=== PATIENT | female | born 1985 | race Caucasian/White ===

== ENCOUNTER 2025-04-12 17:49 | Emergency (ER) | payer BC, SELFPAY ==
--- NOTE | 2025-04-12 17:47 | ECG_ITS ---
APPROVED REPORT Exam: Resting ECG HR:97 bpm ECG Measurements Heart Rate 97 AXES IA 108 P 81 QRSd 81 QRS 80 QT 340 T 59 QTc 395 Conclusion Sinus rhythm No acute ischemic change Electronically signed by : NATALIE MELENDEZ, 04/12/2025 23:06:33
[2025-04-12 17:49] VITALS: BP 157/100; PULSE 75; O2SAT 99
--- OUTSIDE RECORDS SUMMARY | 2025-04-12 17:53 | XMS_ITS | Data Portability ---
Author Organization [facility] [place], [facility] Address [address] [place] [id number] Assessment No assessment recorded. Plan of Treatment Reminders Order Date Submit Date Provider Last Modified By Organization Details Last Modified Time Details Appointments None record ed. Lab None record ed. Referral None record ed. Procedures None record ed. Surgeries None record ed. Imaging None record ed. Medication Orders None record ed. Patient TargetsNo targets recorded. Patient InstructionsNo instructions recorded. Reason for Referral None Reported. Procedures Surgical History Date Name Laterality Status Provider Name and Address Organization Details Recorded Time 10/15/19 18 Other completed Juliann Denton [facility] [place] 09/19/2022 08:51:15 10/15/19 11 Other completed Juliann Denton [facility] [place] 09/19/2022 08:51:15 10/15/18 89 Abdominal Surgery completed Juliann Denton [facility] [place] 09/19/2022 08:51:15 reconstruction of nose completed Juliann Denton [facility] [place] 09/19/2022 08:44:55 procedure on urinary bladder completed Juliann Denton [facility] [place] 09/19/2022 08:45:06 exploratory laparotomy completed Juliann Denton [facility] [place] 09/19/2022 08:45:50 Imaging Results None recorded. Procedure Notes None recorded. Medical Equipment None Reported. Allergies No known drug allergies Medications Name Sig Start Date Stop Date Status Note LastModified by Organization Details LastModified Time alprazolam 0.5 mg tablet TAKE 1 TABLET BY MOUTH NEEDED active Not Available Not Available No t Available venlafaxine 37.5 mg tablet TAKE 1 TABLET BY MOUTH TWICE A DAY active Not Available Not Available No t Available hydroxyzine HCl 25 mg tablet Take 1 tablet twice a day by oral route. active Not Available Not Available No t Available Vitals Date Recorded Body height Body mass index (BMI) Body weight Heart rate Oxygen saturation Oxygen saturation in Arterial blood by Pulse oximetry Body temperature Systolic blood pressure Diastolic blood pressure Provider Name and Address Organization Details Last Updated DateTime 2 154.94 cm 34.4 kg/m2 78237.0 9 g 91 /min 97 % 97 % 99.1 [degF] 128 mm[Hg] 85 mm[Hg] Juliann Denton [facility] [place] 2 08:50:47 Date Recorded Body height Body mass index (BMI) Body weight Heart rate Oxygen saturation Oxygen saturation in Arterial blood by Pulse oximetry Body temperature Systolic blood pressure Diastolic blood pressure Provider Name and Address Organization Details Last Updated DateTime 2 154.94 cm 34.4 kg/m2 06487.8 1 g 101 /min 99 % 99 % 97.3 [degF] 124 mm[Hg] 68 mm[Hg] [facility] [place] [facility] 11:18:33 Social History Question Answer Notes LastModified by Organizat ion Details LastModified Time Tobacco Smoking Status Former Smoker Juliann Denton [facility] [place] 09/19/2022 08:44:37 Do You Have An Advance Directive? No [email or web address] Information not available 09/19/2022 Are You Blind Or Do You Have Difficulty Seeing? No [email or web address] Information not available 09/19/2022 Are You Passively Exposed To Smoke? No [email or web address] Information not available 09/19/2022 How Much Tobacco Do You Smoke? No [email or web address] Information not available 09/19/2022 Sex: Unknown Functional Status Question Answer Note LastModified by Organizat ion Details LastModified Time Do you use any illicit or recreational drugs? No [email or web address] Information not available 09/19/2022 What is your level of alcohol consumption? Occasional Information not available 09/19/2022 What is your exercise level? Occasional [email or web address] Information not available 09/19/2022 Mental Status Question Answer Note LastModified by Organization D etails LastModified Time Do you feel stressed (tense, restless, nervous, or anxious, or unable to sleep at night)? [id number] Information not available 09/19/2022 Family History Nothing Reported. Medical History Condition Response None Y Gynecological History Statement/Question Response Menses Monthly Y Abnormal Pap Y Duration of Flow (days) 4-5 days Current Control Method None Flow Heavy Sexually Active? Y Obstetrics History GPAL:G 0 P 0 0 0 0 Past Encounters Encounter ID Performer Location Encounter Start Date Encounter Closed Date Diagnosis/Indication Diagnosis SNOMED-CT Code Diagnosis ICD10 Code Diagnosis Note [id number] MD YEIMI Mosquera [facility] [address] [place] [address] 8 09/19/2022 08:27:24 09/19/2022 09:10:18 Mass of left breast 8223850083 8409290 N63.20 inferior. Plan for excision. [id number] MD YEIMI Mosquera [facility] [address] [place] [address] 8 10/04/2022 10:34:27 10/04/2022 11:25:40 Pre-surgery evaluation [id number] Z01.818 Cyst of left breast 1073 831046 7844985 N60.02 observatio n. Health Concerns Section Related Observation LastModified by Organization Detai ls LastModified Time None Recorded Concern Status LastModified by Organization Details LastModified Time None Recorded Advance Directives Directive N: Payers Insurance Date Sequence Insurance Name Policy Number Policy Alcala Covered Member ID Alcala Member ID Guarantor Name 09/12/2022 SLIDING FEE SCHEDULE - DISCOUNT Dottie Bacon Notes Date Note Type Note Provider Name and Address Organization Details Recorded Time 09/19/2022 text/html Dottie is a 37-year-old woman who complains of a left breast knot. She has noticed the lump for approximately 1 year. Recently is become larger and more painful. She has no personal history of breast problems. She is adopted but recently found her mother and was told that she has no immediate family history of breast cancer. She has had mammograms ordered but they have been performed yet. Yunior Alvarado MD [address] [place] [address],[address], [place], [address], [facility] [place] 09/19/2022 09:10:46 10/04/2022 text/html Dottie is a 37-year-old woman who I have seen in the past for a left breast cyst. She was not able to have it excised at that time. Since then she says the cyst as resolved. Yunior Alvarado MD [address] [place] [address],[address], [place], [address], [place] - [facility] [place] 10/04/2022 16:00:38 OBGyn Episode No OBEpisode recorded.
--- OUTSIDE RECORDS SUMMARY | 2025-04-12 17:53 | XMS_ITS | Encounter Summary ---
Author Organization [place] [place] [address] Care Team Providers Care Architectural Wood Model Maker Name Role Phone Keri Gordon APRN Primary Care Provider [phone] Reason for Visit * Reason Onset Date Comments Medication Refill 07/24/2017 Encounter Details Date Type Department Care Team (Late st Contact Info) Description 07/24/2017 Refill SEP Patricia [address] 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 Author Maintain a healthy diet, exercise regularly and maintain an ideal body weight General No Madeleine Hernández CCMA documented as of this encounter Visit Diagnoses Not on filedocumented in this encounter Additional Health Concerns Assessment Noted Time PHQ-9 Depression Total Score: 18 017 8:00 AM EDT PHQ-2 Depression Total Score: 6 04/10/20 17 8:00 AM EDT documented as of this encounter Care Teams Architectural Wood Model Maker Relationship Specialty Start Date End Date Keri Gordon APRN [address] [place], [place] [address] PCP - General Nurse Practitioner-Family 05/01/1704/14 documented as of this encounter
--- OUTSIDE RECORDS SUMMARY | 2025-04-12 17:53 | XMS_ITS | Data Portability ---
Author Organization [facility] Address [address] [place] [address] Assessment No assessment recorded. Plan of Treatment Reminders Order Date Submit Date Provider Last Modified By Organization Details Last Modified Time Details Appointments None recorded. Lab test, urine 2019 020 [email or web address] [place] [employer], [address] [facility] , [place], [address], 0 22:19:42 HCG, intact + beta subunit, quant, serum or plasma 2019 020 [email or web address] [facility]( Lab), [address] [place] [address] Salina Baeza, [place], [address], 0 09:58:39 HCG, intact + beta subunit, quant, serum or plasma 2019 020 [email or web address] [facility]( Lab), [address] [place] [address] Salina Baeza, [place], [address], 0 15:41:10 Referral general surgeon referral - mammogram and US ordered; questionabl e of superficial sebaceous cyst would like a surgery consult 2021 022 [email or web address] [facility], [address] [place] [address] , [facility] [address], [place], [address], 3 09:35:40 community health worker referral - pt needs a mammogram and Us of left breast secondary to lump and has no insurance 2021 022 [email or web address] Not available 15:44:52 Procedures None recorded. Surgeries None recorded. Imaging US, breast, unilateral 2021 022 [email or web address] [facility] [address] [place] [address] [place], [address], 3 10:52:23 MAMMO, screening, digital, bilateral 2021 022 [email or web address] [facility] [address] [place] [address] [place], [address], 3 10:52:22 US, obstetric, transvagina l 2019 020 [email or web address] [employer], [address] [place] [address] , [place], [address], 0 17:44:24 Medication Orders Vistaril 25 mg capsule 2023 024 [id number], [address] [place] [address], [address], 4 15:14:40 Patient TargetsNo targets recorded. Patient Instructions Encounter Date Encounter Id Patient Instructions Last Modified By Organization Details Last Modified Time 03/19/2020 [id number] See HPI Rto Wed for f/u-will have beta @ [facility] prior to appt Seek ER care with pain/heavy bleeding over the weekend Not available 03/19/2020 17:45:17 03/24/2020 [id number] See HPI Rto Wed for f/u-will have beta @ [facility] prior to appt Seek ER care with pain/heavy bleeding over the weekend Schedule with Dr. Thomas to discuss HSG Start metformin as directed [email or web address] Not available 03/24/2020 15:57:08 09/11/2022 [id number] learning about breast cancer screening Not available 09/11/2022 11:28:48 get the diagnostics done and follow up with general surgery Not available 09/11/2022 09:57:25 Reason for Referral General Surgeon Referral for [place] of left breast mammogram and US ordered; questionable of superficial sebaceous cystwould like a surgery consult Referring Physician: Dana Cole [facility], Encounter Date: 09/11/2022 Community Health Worker Refe rral for Financial problem pt needs a mammogram and Us of left breast secondary to lump and has no insurance Referring Physician: Dana Cole [facility], Encounter Date: 09/11/2022 Results Created Date Observation Date Name Description Value Unit Range Abnormal Flag Note LastModifiedBy Organization Detail LastModifiedTime 04/04/20 20 04/04/2020 pregn maranda test, urine HCG negati ve Not Available [employer] [address] [place] [address] , [place], [address], 04/04/2020 22:04:37 03/18/20 20 03/18/2020 obste tric scree n, serum or blood HBsAg screen Negati ve negati ve Not Available [facility] ([facility]) [address] [place], [address], 03/20/2020 16:09:03 03/18/20 20 03/18/2020 obste tric scree n, serum or blood RPR Non Reacti ve non reacti ve Not Available [facility] ([facility]) [address] [place], [address], 03/20/2020 16:09:03 03/18/20 20 03/18/2020 obste tric scree n, serum or blood rubella antibodies, IgG 1.35 index immune >0.99 Non-i mmune <0.90 Equiv ocal 0.90 - 0.99 Immun e >0.99 Not Available [facility] ([facility]) [address] [place], [address], 03/20/2020 16:09:03 03/18/20 20 03/18/2020 obste tric scree n, serum or blood ABO grouping O Not Available [facility] ([facility]) [address] [facility], [place], [address], 03/20/2020 16:09:03 03/18/20 20 03/18/2020 obste tric scree n, serum or blood Rh factor Negati ve Pleas e note: Prior recor ds for this patie nt's ABO / Rh type are not avail able for addit ional verif icati on. Not Available [facility] ([facility]) [address] [facility], [place], [address], 03/20/2020 16:09:03 03/18/20 20 03/18/2020 obste tric scree n, serum or blood antibody screen Negati ve negati ve Not Available [facility] ([facility]) [address] [facility], [place], [address], 03/20/2020 16:09:03 03/18/20 20 03/18/2020 obste tric scree n, serum or blood WBC 8.3 x10e3 /uL 3.4-10 .8 Not Available [facility] ([facility]) [address] [place], [address], 03/20/2020 16:09:03 03/18/20 20 03/18/2020 obste tric scree n, serum or blood RBC 4.86 x10e6 /uL 3.77-5 .28 Not Available [facility] ([facility]) [address] [place], [address], 03/20/2020 16:09:03 03/18/20 20 03/18/2020 obste tric scree n, serum or blood hemoglobin 14.4 g/dL 11.1-1 5.9 Not Available [facility] ([facility]) [address] [place], [address], 03/20/2020 16:09:03 03/18/20 20 03/18/2020 obste tric scree n, serum or blood hematocrit 44.7 % 34.0-4 6.6 Not Available [facility] ([facility]) [address] [facility], [place], [address], 03/20/2020 16:09:03 03/18/20 20 03/18/2020 obste tric scree n, serum or blood MCV 92 fL 79-97 Not Available [facility] ([facility]) [address] [facility], [place], [address], 03/20/2020 16:09:03 03/18/20 20 03/18/2020 obste tric scree n, serum or blood MCH 29.6 pg 26.6-3 3.0 Not Available [facility] ([facility]) [address] [facility], [place], [address], 03/20/2020 16:09:03 03/18/20 20 03/18/2020 obste tric scree n, serum or blood MCHC 32.2 g/dL 31.5-3 5.7 Not Available [facility] ([facility]) [address] [facility], [place], [address], 03/20/2020 16:09:03 03/18/20 20 03/18/2020 obste tric scree n, serum or blood RDW 13.2 % 11.7-1 5.4 Not Available [facility] ([facility]) [address] [facility], [place], [address], 03/20/2020 16:09:03 03/18/20 20 03/18/2020 obste tric scree n, serum or blood platelets 409 x10e3 /uL 150-45 0 Not Available [facility] ([facility]) [address] [place], [address], 03/20/2020 16:09:03 03/18/20 20 03/18/2020 obste tric scree n, serum or blood neutrophils 65 % not estab. Not Available [facility] ([facility]) [address] [place], [address], 03/20/2020 16:09:03 03/18/20 20 03/18/2020 obste tric scree n, serum or blood lymphs 24 % not estab. Not Available [facility] ([facility]) [address] [facility], [place], [address], 03/20/2020 16:09:03 03/18/20 20 03/18/2020 obste tric scree n, serum or blood monocytes 7 % not estab. Not Available [facility] ([facility]) [address] [facility], [place], [address], 03/20/2020 16:09:03 03/18/20 20 03/18/2020 obste tric scree n, serum or blood eos 3 % not estab. Not Available [facility] ([facility]) [address] [facility], [place], [address], 03/20/2020 16:09:03 03/18/20 20 03/18/2020 obste tric scree n, serum or blood basos 1 % not estab. 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 0 Not Available [facility] ([facility]) [address] [place], [address], 03/20/2020 16:09:03 03/18/20 20 03/18/2020 obste tric scree n, serum or blood lymphs (absolute) 2.0 x10e3 /uL 0.7-3. 1 Not Available [facility] ([facility]) [address] [facility], [place], [address], 03/20/2020 16:09:03 03/18/20 20 03/18/2020 obste tric scree n, serum or blood monocytes(ab solute) 0.6 x10e3 /uL 0.1-0. 9 Not Available [facility] ([facility]) [address] [facility], [place], [address], 03/20/2020 16:09:03 03/18/20 20 03/18/2020 obste tric scree n, serum or blood eos (absolute) 0.2 x10e3 /uL 0.0-0. 4 Not Available [facility] ([facility]) [address] [facility], [place], [address], 03/20/2020 16:09:03 03/18/20 20 03/18/2020 obste tric scree n, serum or blood baso (absolute) 0.1 x10e3 /uL 0.0-0. 2 Not Available [facility] ([facility]) [address] [place], [address], 03/20/2020 16:09:03 03/18/20 20 03/18/2020 obste tric scree n, serum or blood immature granulocytes 0 % not estab. Not Available [facility] ([facility]) [address] [place], [address], 03/20/2020 16:09:03 03/18/20 20 03/18/2020 obste tric scree n, serum or blood immature grans (abs) 0.0 x10e3 /uL 0.0-0. 1 Not Available [facility] ([facility]) [address] [place], [address], 03/20/2020 16:09:03 03/18/20 20 03/18/2020 obste tric scree n, serum or blood NRBC LABELING SPECIALIST Not Available [facility] ([facility]) [address] [place], [address], 03/20/2020 16:09:03 03/18/20 20 03/18/2020 obste tric scree n, serum or blood hematology comments: LABELING SPECIALIST Not Available [facility] ([facility]) [address] [facility], [place], [address], 03/20/2020 16:09:03 03/18/20 20 03/18/2020 HbA1c (hemo globi n A1c), blood hemoglobin A1C 5.2 % 4.8-5. 6 Predi abete s: 5.7 - 6.4 Diabe jose: >6.4 Glyce gabi contr ol for adult s with diabe jose: <7.0 Not Available [facility] ([facility]) [address] [facility], [place], [address], 03/20/2020 16:09:04 03/18/20 20 03/18/2020 HCG, intac t + beta subun it, quant , serum or plasm a HCG,beta subunit,qnt, serum 12 mIU/m L Femal e (Non- pregn ant) 0 - 5 (Post menop ausal ) 0 - 8 Femal e (Preg nant) Weeks of Gesta tion 3 6 - 71 4 10 - 750 5 217 - 4138 6 158 - 54989 7 4157 -0552 63 8 90018 -9215 71 9 85819 -2489 10 10 71482 -0088 77 12 76375 -9303 12 14 98432 - 01136 15 62931 - 13153 16 2862 - 95468 17 8270 - 89562 18 2776 - 92228 Wendi ified by repea t bibi sis Jeannine ECLIA metho dolog y Not Available [facility] ([facility]) [address] [facility], [place], [address], 03/20/2020 16:09:05 03/18/20 20 03/18/2020 HIV 1+2 AB + HIV 1 p24 Ag, quali tativ e immun oassa y, serum HIV screen 4TH generation wrfx Non Reacti ve non reacti ve Not Available [facility] ([facility]) [address] [facility], [place], [address], 03/20/2020 16:09:05 03/18/20 20 03/18/2020 hepat itis C Ab, signa l-to- cutof f, serum or plasm a HCV Ab <0.1 s/co_ ratio 0.0-0. 9 Not Available [facility] ([facility]) [address] [facility], [place], [address], 03/20/2020 16:09:06 03/18/20 20 03/18/2020 hepat itis C Ab, signa l-to- cutof f, serum or plasm a comment: Commen t Non react michael HCV antib leigh scree n is consi stent with no HCV infec tion, unles s recen t infec tion is suspe cted or other evide nce exist s to indic ate HCV infec tion. Not Available [facility] ([facility]) [address] [facility], [place], [address], 03/20/2020 16:09:06 03/18/20 20 03/18/2020 proge stero ne, serum progesterone 0.6 NG/mL Folli cular phase 0.1 - 0.9 Lutea l phase 1.8 - 23.9 Ovula tion phase 0.1 - 12.0 Pregn ant First trime ster 11.0 - 44.3 Secon d trime ster 25.4 - 83.3 Third trime ster 58.7 - 214.0 Postm enopa usal 0.0 - 0.1 Not Available [facility] ([facility]) [address] [facility], [place], [address], 03/20/2020 16:09:06 03/18/2003/20/2020 cultu re, urine urine culture, routine Final report abnormal Not Available [facility] ([facility]) [address] [facility], [place], [address], 03/20/2020 16:09:07 03/18/20 20 03/20/2020 cultu re, urine result 1 Commen t abnormal Enter obact er cloac ae compl ex Great er than 100,0 00 colon y formi ng units per mL Not Available [facility] ([facility]) [address] [place], [address], 03/20/2020 16:09:07 03/18/20 20 03/20/2020 cultu re, urine antimicrobia l susceptibili ty Commen t S = Susce ptibl e; I = Inter media te; R = Resis tant P = Posit michael; N = Negat michael MICS are expre ssed in micro grams per mL Antib iotic RSLT# 1 RSLT# 2 RSLT# 3 RSLT# 4 Amoxi cilli n/Cla vulan ic Acid S =4 Cefep jessy S<=0. 12 Cefur oxime R =32 Cipro floxa bolivar S<=0. 25 Ertap enem S<=0. 12 Genta micin S<=1 Imipe nem S<=0. 25 Levof loxac in S<=0. 12 Merop enem S<=0. 25 Nitro furan toin I =64 Tetra cycli ne S =2 Tobra mycin S<=1 Trime thopr im/Michael lfa S<=20 Not Available [facility] ([facility]) [address] [place], [address], 03/20/2020 16:09:07 03/18/20 20 03/18/2020 pleas e note please note Commen t The date and/o r time of colle ction was not indic ated on the requi sitio n as requi red by state and [place] law. The date of recei pt of the speci men was used as the colle ction date if not suppl ied. Not Available [facility] ([facility]) [address] [facility], [place], [address], 03/20/2020 16:09:08 03/18/20 20 03/24/2020 drug scree n, urine summary report (summary) FINAL ===== ===== ===== ===== ===== ===== ===== ===== ===== ===== ===== ===== ===== === TOXAS SURE COMP DRUG BIBI SIS,U R ===== ===== ===== ===== ===== ===== ===== ===== ===== ===== ===== ===== ===== === Test Resul t Flag Units NO DRUGS DETEC CHANELLE. ===== ===== ===== ===== ===== ===== ===== ===== ===== ===== ===== ===== ===== === Test Resul t Flag Units Ref Range Creat inine 223 mg/dL >=20 ===== ===== ===== ===== ===== ===== ===== ===== ===== ===== ===== ===== ===== === Decla red Medic ation s: Medic ation list was not provi ded. ===== ===== ===== ===== ===== ===== ===== ===== ===== ===== ===== ===== ===== === For clini merary consu ltati on, pleas e call . ===== ===== ===== ===== ===== ===== ===== ===== ===== ===== ===== ===== ===== === Not Available [facility] [address], [place], [address], 03/24/2020 12:10:29 03/18/20 20 03/24/2020 drug scree n, urine pdf . 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 Not Available [address] , [place], [address], 03/19/2020 15:24:14 03/19/20 20 03/19/2020 beta- HCG, quant itati ve, serum or plasm a HCG serum dung 11 mIU/m L HCG EXPEC CHANELLE [facility] NTRAT IONS 0.2-w barrow 5-50 mIU/m l 1-2 weeks 50-50 0 mIU/m l 2-3 weeks 100-5 000 mIU/m l 3-4 weeks 500-1 0000 mIU/m l 4-5 weeks 1000- 50,00 0 mIU/m l 5-6 weeks 05992 -100, 000 mIU/m l 6-8 weeks 69559 -200, 000 mIU/m l 2-3 month s 54459 -100, 000 mIU/m l Not Available [address] [place], [address], 03/19/2020 15:24:14 03/19/20 20 03/19/2020 beta- HCG, quant itati ve, serum or plasm a performing lab see note ML - [facility] [address] [facility] [address] Not Available [address] [place], [address], 03/19/2020 15:24:14 03/24/20 20 03/24/2020 beta- HCG, quant itati ve, serum or plasm a note See Note Order ing Provi dorinda: Berenice jacobs APRN Not Available [address] , [place], [address], 03/24/2020 14:23:15 03/24/20 20 03/24/2020 beta- HCG, quant itati ve, serum or plasm a HCG serum dung 10 mIU/m L HCG EXPEC CHAN[employer]LE [employer] NTRAT IONS 0.2-w barrow 5-50 mIU/m l 1-2 weeks 50-50 0 mIU/m l 2-3 weeks 100-5 000 mIU/m l 3-4 weeks 500-1 0000 mIU/m l 4-5 weeks 1000- 50,00 0 mIU/m l 5-6 weeks 53554 -100, 000 mIU/m l 6-8 weeks 16073 -200, 000 mIU/m l 2-3 month s 53434 -100, 000 mIU/m l Not Available [address] [place], [address], 03/24/2020 14:23:15 03/24/20 20 03/24/2020 beta- HCG, quant itati ve, serum or plasm a performing lab see note - [facility] R [address] [place] [address] DRIVE [facility] [address] Not Available [address] [place], [address], 03/24/2020 14:23:15 03/31/20 20 03/31/2020 beta- HCG, quant itati ve, serum or plasm a note See Note Order ing Provi dorinda: Berenice jacobs APRN Not Available [address] [place], [address], 03/31/2020 14:21:20 03/31/20 20 03/31/2020 beta- HCG, quant itati ve, serum or plasm a HCG serum dung 7 mIU/m L HCG EXPEC CHANELLE [facility] NTRAT IONS 0.2-w barrow 5-50 mIU/m l 1-2 weeks 50-50 0 mIU/m l 2-3 weeks 100-5 000 mIU/m l 3-4 weeks 500-1 0000 mIU/m l 4-5 weeks 1000- 50,00 0 mIU/m l 5-6 weeks 69401 -100, 000 mIU/m l 6-8 weeks 31225 -200, 000 mIU/m l 2-3 month s 52346 -100, 000 mIU/m l Not Available [address] , [place], [address], 03/31/2020 14:21:20 03/31/20 20 03/31/2020 beta- HCG, quant itati ve, serum or plasm a performing lab see note - [facility] R [address] [facility] [address] Not Available [address] , [place], [address], 03/31/2020 14:21:20 Result Notes None recorded. Problems No Known Problems Procedures Surgical History Date Name Laterality Status Provider Name and Address Organization Details Recorded Time 0 OB Ultrasound Summary completed Kathy Ruffin [place] [facility] 03/19/2020 17:08:21 urinary endoscopy completed Infusion Nurse [address], [address], [facility] - [facility] 03/17/2020 08:36:33 open rhinoplasty completed Infusion Nurse [address], [place], [address], [facility] 03/17/2020 08:36:42 exploratory laparotomy completed Infusion Nurse [address], [place], [address], [facility] 03/17/2020 08:37:10 Imaging Results None recorded. Procedure Notes None recorded. Medical Equipment None Reported. Allergies No known drug allergies Medications Name Sig Start Date Stop Date Status Note LastModified by Organization Details LastModified Time metformin 500 mg tablet Take 1 tablet by oral route. 04/08 completed Not Available Not Available Not Available Augmentin 875 mg-125 mg tablet Take 1 tablet twice a day by oral route for 7 days. 03/31 completed Not Available Not Available Not Available clindamycin HCl 300 mg capsule 04/08 completed Not Available Not Available Not Available clomiphene citrate 50 mg tablet 2 tablets daily on cycle day 5-9 04/08 completed Not Available Not Available Not Available hydrocodone 5 mg-acetamin ophen 325 mg tablet Take 1 tablet every 6 hours by oral route as needed. active Not Available Not Available No t Available valacyclovi r 500 mg tablet Take 1 tablet twice a day by oral route as needed for 3 days, for outbreaks . 2023 active Not Available Not Available Not Avai lable triamcinolo ne acetonide 0.1 % topical cream 04/08 completed Not Available Not Available Not Available cephalexin 500 mg capsule 04/08 completed Not Available Not Available Not Available venlafaxine 37.5 mg tablet TAKE 1 TABLET BY MOUTH TWICE A DAY 04/08 completed Not Available Not Available Not Available buspirone 10 mg tablet TAKE ONE TABLET BY MOUTH EVERY MORNING AND 2 TABLETS EVERY EVENING 04/08 completed Not Available Not Available Not Available omeprazole 20 mg capsule,del ayed release 04/08 completed Not Available Not Available Not Available ipratropium bromide 21 mcg (0.03 %) nasal spray USE 2 SPRAYS BY NASAL ROUTE 3 TIMES DAILY. 04/08 completed Not Available Not Available Not Available hydroxyzine pamoate 25 mg capsule TAKE 1 CAPSULE BY MOUTH TWICE A DAY NEEDED FOR 4 DAYS. active Not Available Not Available No t Available nitrofurant oin monohydrate /macrocryst als 100 mg capsule Take 1 capsule every 12 hours by oral route for 7 days. 04/08 completed Not Available Not Available Not Available amoxicillin active Not Available Not A vailable Not Available HyperRHO S/D 1,500 unit (300 mcg) intramuscul ar syringe Inject 1 unit by intramusc ular route. 03/31 completed Not Available Not Available Not Available Gummy 400 mcg-35 mg-25 mg-5 mg chewable tablet Take 1 tablet every day by oral route as directed for 30 days. 04/08 completed Not Available Not Available Not Available Vitals Date Recorded Body height Body weight Systolic And Diastolic Provider Name and Address Organization Details Last Updated DateTime 03/19/2020 157.48 cm 00661.5651 42 g 120/88 mm[Hg] Gabriela Hollis [place] - [facility] 03/19/2020 16:03:56 Date Recorded Body weight Provider Name an d Address Organization Details Last Updated DateTime 03/24/2020 65554.84553 g Infusion Nurse M OB [address], [place], [address], [place] - [facility] 03/24/2020 16:00:59 Date Recorded Body height Body mass index (BMI) Systolic And Diastolic Provider Name and Address Organization Details Last Updated DateTime 03/24/2020 157.48 cm 28.9 kg/m2 114/70 mm[Hg] Gabriela Hollis [place] - [facility] 03/24/2020 14:28:51 Date Recorded Body height Body mass index (BMI) Body weight Systolic And Diastolic Provider Name and Address Organization Details Last Updated DateTime 03/31/2020 157.48 cm 28.6 kg/m2 46172.13 g 118/74 mm[Hg] Ayanna Alina [place] - [facility] 03/31/2020 15:30:27 Date Recorded Body weight Heart rate Oxygen saturation Oxygen saturation in Arterial blood by Pulse oximetry Respiratory rate Systolic And Diastolic Provider Name and Address Organization Details Last Updated DateTime 4 70525.2 6 g 108 /min 98 % 98 % 18 /min 118/78 mm[Hg] Cyn Moss [place] - [facility] 4 14:30:40 Date Recorded Body weight Heart rate Oxygen saturation Oxygen saturation in Arterial blood by Pulse oximetry Respiratory rate Systolic And Diastolic Provider Name and Address Organization Details Last Updated DateTime 2 08612.0 3 g 90 /min 98 % 98 % 18 /min 122/70 mm[Hg] Betty May [place] - [facility] 2 09:34:02 Social History Question Answer Notes LastModified by Organizat ion Details LastModified Time Tobacco Smoking Status Never Smoker Infusion Nurse [facility] [address], [place], [address] [place] - [facility] 03/17/2020 08:31:31 Do You Have An Advance Directive? No Information not available 03/17/2020 If You Are , What Was Your Level Of Alcohol Consumption Prior To ? Occasional Information not available 03/17/2020 Is Anesthesia Consult Planned? No Information not available 03/17/2020 Plan No Information no t available 03/17/2020 Is Blood Transfusion Acceptable In An Emergency? Yes Information not available 03/17/2020 Breast Feeding? Yes Informati on not available 03/17/2020 What Is Your Level Of Caffeine Consumption? Moderate Information not available 03/17/2020 Live With Cats/exposure To Cat Litter Yes Discussed Information not available 03/17/2020 How Much Tobacco Do You Chew? None Information not available 03/17/2020 Diabetes No Information no t available 03/17/2020 What Type Of Diet Are You Following? REGULAR Information not available 03/17/2020 Which Illicit Or Recreational Drugs Have You Used? Denies Information not available 03/17/2020 Education 12 Information no t available 03/17/2020 Have There Been Any Changes To Your Family Or Social Situation? No Information not available 03/17/2020 Frequent Air Travel No Information not available 03/17/2020 High Blood Pressure No Information not available 03/17/2020 High Cholesterol No Information not available 03/17/2020 High Number Of Sexual Partners No Information not available 03/17/2020 Illicit Drugs Pre- Denies Information not available 03/17/2020 Live Alone Or With Others? With Others Information not available 03/17/2020 Latex Allergy No Information not available 03/17/2020 What Was The Date Of Your Most Recent Tobacco Screening? 04/08/2024 cbuckler Information not available 04/08/2024 How Many Children Do You Have? 0 Information not available 03/17/2020 Do You Have Any Pets? Yes 2 Dogs And A Cat Information not available 03/17/2020 What Is Your Relationship Status? Lives W/BF Information not available 03/17/2020 Seat Belts Used Routinely Yes Information not available 03/17/2020 Are You Sexually Active? Yes Information not available 03/17/2020 Do You Have Smoke And Carbon Monoxide Detectors In Your Home? Yes Information not available 03/17/2020 Are You Passively Exposed To Smoke? Yes Information not available 03/17/2020 Smoking Pre- No Information not available 03/17/2020 General Stress Level Low Information not available 03/17/2020 Do You Use Sunscreen Routinely? Yes Information not available 03/17/2020 Do You Have Symptoms Associated With Zika Virus (fever, Rash, Joint Pain, Or Conjunctivitis) ? No Information not available 03/17/2020 Have You Recently (within The Last 12 Weeks, Or During A Current ) Traveled To Or Lived In A Zika-affected Area? No Information not available 03/17/2020 Sex: Female Functional Status Question Answer Note LastModified by Organizat ion Details LastModified Time What is your level of alcohol consumption? Occasional Information not available 03/17/2020 Do you or have you ever used smokeless tobacco? Never used smokeless tobacco Information not available 03/17/2020 Are you currently employed? 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 Never used electronic cigarettes Information not available 03/17/2020 Mental Status None recorded. Family History Relationship Description Onset Age of this Age Resolved Age Notes LastModified by Organization Details LastModified Time Father No current problems or disability Not available 03/17 08:31:23 Mother No current problems or disability Not available 03/17 08:31:23 Medical History Condition Response Pancreatitis N Other N Atrial Fibrillation N congenital heart disease N Blood Diseases N Hyperthyroidism N Rheumatoid arthritis N Blood Transfusion N Erectile Dysfunction N amputation N Skin Lesions N Depression N Pneumonia N Incontinence N Murmur N Edema N Alzheimer's Disease N Migraine Headaches N Tobacco Abuse N Anxiety Disorder N Hemorrhoids N Obesity N Vision or Eye Problems N Restless Leg Syndrome N Arthritis N Polyps N Infertility N Carpal Tunnel N Acid Reflux (GERD) N Cancer N Varicosities N Stroke N Tendonitis N Crohn's Disease N Hypercholesterolemia N Skin Cancer N Headaches N Fibromyalgia N Irritable Bowel Syndrome N Anal Fissure N Kidney Disease N Heart Problems N Hospitalizations N Gallstones N Kidney or Bladder Problems N Goiter N Acne N Eating Disorder N Zamorano's Esophagus N Hypertriglyceridemia N Constipation N Embolism N Vitamin B12 Deficiency N Deviated Septum N AIDS/HIV N Myocardial Infarction N Asthma N Mitral Valve Disorders N Vertigo N Hepatitis N Thyroid Cancer N Neuropathy N History of DVT N Herniated Disc N Chicken Pox N Von Willebrands Disease N Thrombophilias N Breast Cancer N Hernia N Plantar Fasciitis N Hypothyroidism N Lung Disease N Defects or Inherited Disease N Breast Problem N Ovarian Cyst N Anesthesia Complications N Testosterone Deficiency N Interstitial Cystitis N Congenital Anomalies N Hypoglycemia N Blood clot N Vitamin D Deficiency N Cellulitis N Endometriosis N Bladder or Kidney Problems N Fracture N Schizophrenia N Panic Disorder N Concussion N Spina Bifida N Osteoarthritis N Parkinson's Disease N Disc Protrusion N STI N Esophagitis N Angina N Thyroid Problems N GI Problems N ADD/ADHD N Anemia N Multiple Sclerosis N Abnormal PAP N Lumbago N Mental Illness N Psychiatric Illness N Ovarian Cancer N Diabetes N Degenerative Disc Disease N Seizures/Epilepsy N Syncope N Hyperlipidemia N Insomnia N Eczema N Abuse/Domestic Violence N Attention Deficient Disorder N Dementia N Ulcerative colitis N Cerebrovascular Disease N Depression N Guillain-[place] N Sleep Apnea N Aneurysm N Bronchitis N Heart Disease N Suicidal Ideation N Pre-Eclampsia N Hypertension N Osteoporosis N Gynecological History Statement/Question Response Abnormal Pap Y Flow Moderate Date of LMP 03/28/2024 On BCP's at Conception? N STIs/STDs Y Colposcopy HPV Vaccine N Duration of Flow (days) 5 Current Control Method Seeking Pre gnancy Age at Menarche 13 Frequency of Cycle (Q days) 28 Sexually Active? Y Menses Monthly Y Date of Last Pap Smear Sexual Problems? N LMP Approximate Hormone Replacement Therapy N Obstetrics History GPAL:G 2 P 0 0 2 0 Type Value Spontaneous 1 Ectopics 1 Total 2 Past Encounters Encounter ID Performer Location Encounter Start Date Encounter Closed Date Diagnosis/Indication Diagnosis SNOMED-CT Code Diagnosis ICD10 Code Diagnosis Note [id number] Lisha Calix CNM [place] [employer] [address] [place] [address] VINICIUS Barber [id number] 7 03/17/2020 08:15:23 03/17/2020 09:16:47 Routine care 108484053 Z34.90 screening 2437 40692 Z36.9 detection examination 56841552 Z32.01 Overweight 446063078 E66 .3 Past pregn maranda history of ectopic 416747849 Z87.59 [id number] Avani Thomas DO [place] [employer] [address] [place] [address] VINICIUS Barber [id number] 7 03/18/2020 13:26:58 03/18/2020 14:55:47 Fertility problem 65542421 N97.9 Miscarriage 75759356 O03 .9 She is going to take a UPT in the morning, if it is negative, she will cancel appointmen t. [id number] MELISA Lockwood [employer] [address] [place] [address] VINICIUS Barber [id number] 7 03/19/2020 15:28:02 03/19/2020 17:19:28 30694651 Z33.1 Miscarriage 87328662 O03 .9 [id number] MELISA Lockwood [employer] [address] [place] [address] VINICIUS Barber [id number] 7 03/24/2020 14:03:36 03/24/2020 15:13:20 Miscarriage 22893715 O03.9 [id number] DO Leonela [place] [employer] [address] [place] [address] VINICIUS Barber [id number] 7 03/31/2020 15:14:07 03/31/2020 16:13:31 Complete miscarriage [id number] O03.9 [id number] Dana Cole [address] [place] [address] 09/11/2022 09:19:14 09/11/2022 10:06:00 Screening for malignant neoplasm of breast 322359323 Z12.39 Mass of left breast 1224 201765 6922408 N63.20 Financial problem 298364 005 Z59.9 pt does not have insurance [id number] Jose Luis Burnham APRN [facility] [address] [place] [address] 04/08/2024 14:12:28 04/08/2024 15:12:06 Anxiety 84455356 F41.9 pt is wanting to become - will ask her musical instrument maker or repairer for recommenda tions for halfway medssend vistaril to help with panic and anxiety- long discussion about med and side effects/ri sk Health Concerns Section Related Observation LastModified by Organization Detai ls LastModified Time None Recorded Concern Status LastModified by Organization Details LastModified Time None Recorded Advance Directives Directive N: Payers Insurance Date Sequence Insurance Name Policy Number Policy Alcala Covered Member ID Alcala Member ID Guarantor Name 09/11/2022 1 [place] [id number] 2 Dottie Dill [id number] Dottie Bacon 09/11/2022 1 *SELF PAY* Abdulkadir Bacon Notes Date Note Type Note Provider Name and Address Organization Details Recorded Time 03/19/2020 text/html Dottie presents to day for f/u on beta, continues to have spotting, with some cramping. Beta today is 11. She states she had heavier bleeding yesterday and passed a clump . She states she would like an US just to confirm that this isn't an ectopic .US done-NO IUP seen. BIlateral ovaries seen-no obvious masses. Pt reassured. Will f/u next wk for rpt beta-given order to have this at [facility] prior to appt. She understands to seek care in the ER if increased pain/heavier bleeding over the weekend. Berenice Clark, GEAR TOOTH LAPPING MACHINE OPERATOR [address], [place], [address], [place] - [facility] 03/19/2020 17:46:04 03/24/2020 text/html Dottie returns tod ay for repeat beta, pt had labs drawn at [facility] prior to appt.Beta is 10 today, down from 11 one week ago. She has had some spotting for a couple of days, but she denies other concerns, fever, pain, etc.She will start metformin today.Plan rto 1 wk for rpt beta.She brings records from prior provider when she had ectopic . She also has pictures of her surgery when she was noted to have a lot of scar tissue/adhesions and she was told that her one remaining tube was a mess . I suggested she may benefit from HSG as she is really eager to conceive. Berenice Clark, GEAR TOOTH LAPPING MACHINE OPERATOR [address], [place], [address], [place] - [facility] 03/24/2020 15:59:00 03/31/2020 text/html Dottie presents to day for Beta follow up. UPT was negative today. We have previously discussed infertility issues. She is not interested in IVF at this time. She has a history of ectopic with right salpingectomy and told that her other tube was bad. She presented today with images from surgery but left tube cannot be visualized. Operative report reviewed and adhesions of tube were stated but no additional information. Discussed possible risks - concern for another ectopic . Her questions were answered and she would like to try Clomid with her next cycle. She has already started Metformin. Taking a PNV. Avani Thomas, DO [address], [place], [address], [facility] - [facility] 04/04/2020 22:19:48 09/11/2022 text/html pt states that s he has a knot on left breast that has gotten bigger and more painful she thought it started out as a blackhead but never got anything out of it and she doesn't know about her family history as she is adopted Dana Douglas [place], [place] - [facility] 09/11/2022 11:29:27 04/08/2024 text/html Anxiety/Depressi onR eported bypatient.Severity: denies suicidal ideations; able to maintain relationships; does not interfere with activities of daily living Context:no major life stressors Associated Symptoms:denies homicidal ideations; no significant weight gain; no significant weight loss; no visual/auditory hallucinations; no delusions; no shortness of breath; mood good; no anxiety; no crying spells; no panic; no isolation; sleeping well; appetite good; energy good; no apathy; maintaining functionality 39 yr old female presents to the office for anxiety. pt states she has always had anxiety. pt states the thought of removing the dressing makes her want to pass out. pt states she feels the same way thinking of the dr pressing on areas. pt states she was able to remove to band aids but is unable to remove the two dressings. pt states she has a full blown pantic attack just thinking about it. Jose Luis Burnham, GEAR TOOTH LAPPING MACHINE OPERATOR [address], [place], [address], [place] - [facility] 04/08/2024 15:15:11 OBGyn Episode Ob Episode Information Episode Created Date Number of Fetuses Patient Bloodtype Patient rh Status Prepregnancy Weight lbs Domestic Partner Domestic Partner Phone Father Name Melon Packer Status 06/03/20 20 1 CLOSED Fetus Data First Name Last Name Admitted to NICU Weight (g) Sex Living Outcome Pediatric Complications Fetus ID Race Codes Race Delivery Type Ectopic [id number] Ravinder Calculation Initial Ravinder Date Initial Exam Date Initial Exam Provider Initial Ultrasound Date Last Menstrual Period Date Ultra Sound Weeks Gestation 0 Eighteen To Twenty Week Ravinder Update Ultra Sound Date Fundal Height At Umbil Quickening Date Ultra Sound Latest Weeks Gestation Final Ravinder Confirmed By Final Ravinder Confirmed Date Final Ravinder Date Ultra Sound Latest Days Gestation 0 0 Menstrual History Last Menstrual Date Menses Monthly On Bcp Conception Prior Menses Frequency Hcg Plus Date Menarche Onset Age Delivery Information Delivery Date Delivery Type Labor Anesthesia Weeks Gestation Incision Type Labor Labor Length Hrs Delivered By Post Complications Tubal Sterilization Discharge Date Comments 8 ectopic left tube, removed. [facility] [place] Discharge Information Feeding Method Contraceptive Method Maternal HG B and HCT Levels Ob Episode Information Episode Created Date Number of Fetuses Patient Bloodtype Patient rh Status Prepregnancy Weight lbs Domestic Partner Domestic Partner Phone Father Name Melon Packer Status 03/17/20 20 1 O Negative [address] Osborne (31) [employer] CLOSED Fetus Data First Name Last Name Admitted to NICU Weight (g) Sex Living Outcome Pediatric Complications Fetus ID Race Codes Race Delivery Type [id number] Problems Problem Notes [place] o f [place] Company[employer] 2018 Problem Name Start Date End Date Resolution Snomed Code Not e screening [id number] [x] CF-Declined..FOB is not a carrier[ ] FTS/DeitzdgN93[ ] Quad Screen Advanced maternal age 989215946 35 yoASA 81 mg QD after 12 wksNeeds Anatomy scan with Overweight 269808591 BMI 28.3A 1C- Active or passive immunization 915121469 TDAP @ 30 wks Past history of ectopic 225813351 Left tu be removed Genital herpes simplex 1457315 6 Needs Prophylaxis @ 36 wks Ravinder Calculation Initial Ravinder Date Initial Exam Date Initial Exam Provider Initial Ultrasound Date Last Menstrual Period Date Ultra Sound Weeks Gestation 11/19/2020 03/17/2020 rhogge 02/14/2020 0 Eighteen To Twenty Week Ravinder Update Ultra Sound Date Fundal Height At Umbil Quickening Date Ultra Sound Latest Weeks Gestation Final Ravinder Confirmed By Final Ravinder Confirmed Date Final Ravinder Date Ultra Sound Latest Days Gestation 0 11/20/19 21 0 Pre- Flowsheet Flowsheet Date 03/17/2020 Soria Score Blood Edema Fundus Height Fundus Units Glucose Ketones Leukocytes Nitrite Labor Signs Protein Cervic Dilation Cervic Effacement Cervic Station neg none 4 wks none negative none Negative none neg Type Weight in lbs Pre/Post Dialysis Refused Weight 155.07513761736 Not Performe d BP Diastolic BP Location Tested BP Systolic BP Type 90 138 sitting Fetus Heart Rate Present Fetus Movement A No Comments No vb, lof or unusual d/c vo ices concern as she has had a prior ectopic and they told her she had scaring in the other tube as well. mdr//Regular 28 days cycles, sure LMP, planned , test, positive UPT 03/12/20. Nervous due to prior ectopic. Denies bleeding or pain. Beta HCG and progesterone today with f/U Beta on Sunday. BP 138/90. She is aware to notify or report to ER with pain or bleeding. Denies hx of HTN, she just feels nervous today. Discussed genetic testing and slight increased risk with AMA. She declined CF because she knows FOB is not a carrier of CF. F/U sunday for Beta HCG and BP check. RH Flowsheet Date 03/18/2020 Soria Score Blood Edema Fundus Height Fundus Units Glucose Ketones Leukocytes Nitrite Labor Signs Protein Cervic Dilation Cervic Effacement Cervic Station 3+ none none negative none Negative neg Type Weight in lbs Pre/Post Dialysis Refused Weight 154.165674872302 BP Diastolic BP Location Tested BP Systolic BP Type 80 126 sitting Fetus Heart Rate Present Fetus Movement Comments Bring in for bleeding and cr amping started this morning. Worried about prior ectopic . Large blood in urine. TM Discussed bleeding/SMO Flowsheet Date 03/19/2020 Soria Score Blood Edema Fundus Height Fundus Units Glucose Ketones Leukocytes Nitrite Labor Signs Protein Cervic Dilation Cervic Effacement Cervic Station 3+ none none small trace Positive trace Type Weight in lbs Pre/Post Dialysis Refused With clothes 156.591913504377 BP Diastolic BP Location Tested BP Systolic BP Type 88 120 sitting Fetus Heart Rate Present Fetus Movement Comments repeat beta, continues to burden ve spotting some cramping, no lof, no urinary issues, +leuk, nits and bld.JRM Flowsheet Date 03/24/2020 Soria Score Blood Edema Fundus Height Fundus Units Glucose Ketones Leukocytes Nitrite Labor Signs Protein Cervic Dilation Cervic Effacement Cervic Station Type Weight in lbs Pre/Post Dialysis Refused With clothes 158.233249682630 BP Diastolic BP Location Tested BP Systolic BP Type 70 114 sitting Fetus Heart Rate Present Fetus Movement Comments Menstrual History Last Menstrual Date Menses Monthly On Bcp Conception Prior Menses Frequency Hcg Plus Date Menarche Onset Age 0502/14/2020 true 28 13 Genetic Screening And Infection History Question Response Note Patient's Age Will Be 35 Years Or Older At Estim ated Date of Delivery true Thalassemia (Mexican, Maori, Mediterranean, Or Background): MCV < 80 false Neural Tube Defect (Meningomyelocele, Spina Bifi da, Or Anencephaly) false Congenital Heart Defect false Down Syndrome false Heber-Sachs (eg, Spiritism, Cajun, Bangladeshi-Burmese) f alse Sharan Disease false Sickle Cell Disease Or Trait () false Hemophilia Or Other Blood Disorders false Muscular Dystrophy false Cystic Fibrosis false Shaka's Chorea false Mental Retardation/Autism false If Yes, Was Person Tested For Fragile X? false Other Inherited Genetic Or Chromosomal Disorder false Maternal Metabolic Disorder (eg, Type 1 Diabetes , PKU) false Patient Or Baby's Father Had A Child With Defects Not Listed Above false Recurrent Loss, Or A Stillbirth false Medications (including Suppl ements, Vitamins, Herbs, OTC Drugs), Illicit/Recreational Drugs, Alcohol false If Yes, Agent(s) And Strength/Dosage false Any Other Genetic History false Live With Someone With TB Or Exposed To TB false Patient Or Partner Has History Of Genital Herpes false Rash Or Viral Illness Since Last Menstrual Perio d false History Of STD, Gonorrhea, Chlamydia, HPV, Syphi lis false Other Infection History false History of HIV false History of Hepatitis false Prior GBS-infected child false Recent Travel Outside of Country false Plans and Education First Trimester Discussed Date Discussion Item Discussion Note Discuss ed By 03/17/2020 Desire for 03/17/2020 Alcohol 03/17/2020 Illicit/recreational drugs m ring4 03/17/2020 Nutrition 03/17/2020 Weight gain counseling mring 4 03/17/2020 Intimate Partner Violence mr ing4 03/17/2020 Unstable Housing 03/17/2020 Use of any medicatio ns (including supplements, vitamins, herbs, or OTC drugs) 03/17/2020 Avoidance of saunas or hot tubs aware 03/17/2020 Indications for ultrasonography 03/17/2020 Comminucation Barriers mring 4 03/17/2020 Anticipated course o f care aware 03/17/2020 Toxoplasmosis precau tions (cats/raw meat) aware 03/17/2020 Sexual activity 03/17/2020 Exercise 03/17/2020 Tobacco/smoking cess ation counseling (ask, advise, assess, assist, and arrange) 03/17/2020 Barriers to Care 03/17/2020 Environmental/work hazards m ring4 03/17/2020 Depression/Anxiety ( should be performed at least once during period) 03/17/2020 WIC/Hands Referral encouraged 03/17/2020 Nutrition counseling ; special diet; dietary precautions (mercury, listeriosis) 03/17/2020 Dental Care / Refer to Dentist Sony Brewer [facility]- up to date on cleanings 03/17/2020 Seat belt use aware 03/17/2020 Childbirth classes/h ospital facilities aware 03/17/2020 aware 03/17/2020 Screening for aneuploidy mri ng4 Second Trimester Discussed Date Discussion Item Discussion Note Discuss ed By 03/17/2020 Selecting a Care Provider [facility] 03/17/2020 Care Planning mri ng4 03/17/2020 Depression/Anxiety ( should be performed at least once during period) 03/17/2020 Intimate Partner Violence mr ing4 03/17/[address] anning & Contraception undecided 03/17/2020 Signs and Symptoms of Labor 03/17/2020 Tobacco Cessation Co unseling (ask, advise, assess, assist, & arrange) Third Trimester Discussed Date Discussion Item Discussion Note Discuss ed By 03/17/2020 Labor Support Person(s) Kory mackey g4 03/17/2020 Infant Feeding Intention breast mri ng4 03/17/2020 Labor Signs 03/17/2020 Intimate Partner Violence mr ing4 03/17/2020 Pain Management Plans epidural 03/17/2020 Movement Monitoring mr ing4 03/17/2020 Cervical Ripening/La bor Induction Counseling 03/17/2020 Trial of Labor Counseling mri4 03/17/2020 Circumcision Preference yes mrin g4 03/17/2020 Signs and Symptoms of Preeclampsia 03/17/2020 [facility] Education (N ewborn screening, immunizations, jaundice, SIDS/Safe Sleeping, Car Seat) mri4 03/17/2020 Depression mri4 03/17/2020 Depression/Anxiety ( should be performed at least once during period) mri4 03/17/2020 Postterm Counseling [facility] 03/17/2020 Feeding breast mri4 03/17/2020 Family Medical Leave or Disabilty Forms [facility] 03/17/2020 Tobacco Cessation Co unseling (ask, advise, assess, assist, & arrange) [facility] Delivery Information Delivery Date Delivery Type Labor Anesthesia Weeks Gestation Incision Type Labor Labor Length Hrs Delivered By Post Complications Tubal Sterilization Discharge Date Comments 0 5.4 Discharge Information Feeding Method Contraceptive Method Maternal HG B and HCT Levels
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
[2025-04-12 17:56] VITALS: BP 157/100; PULSE 72; RESP 20; TEMP 36.6; O2SAT 98; BMI 34.0
[2025-04-12 18:00] VITALS: BP 141/93; PULSE 81; O2SAT 97
--- NOTE | 2025-04-12 18:01 | HMH.EDGENADL ---
Discharge Plan Disposition Patient Disposition: Home, Self-Care Condition: Good Prescriptions Prescriptions: New pantoprazole 40 mg tablet,delayed release (DR/EC) 40 mg PO DAILY 28 Days Qty: 28 0RF No Action amoxicillin-pot clavulanate [Augmentin] 500-125 mg tablet 1 tab PO TID Qty: 15 0RF Referrals Follow up/Referrals: Munir Cowan II, MD [Staff Physician, Gastroenterology] - See instructions Provider,Referral, [Referring, Medical] - See instructions Activity Restrictions/Add. Instructions Additional Instructions/Restrictions: Please return to the emergency department with any worsening signs or symptoms, continue to progress diet as tolerated, please take medication as prescribed until GI follow-up. Please utilize [id number] cold and flu medications for symptomatic relief of upper respiratory symptoms. Follow-up with your family doctor. Clinical Impressions Clinical Impression: Sensation of foreign body in esophagus, GERD (gastroesophageal reflux disease) Instructions Patient Instructions: DI for Gastroesophageal Reflux Disease (GERD), DI for Esophagitis Print Language Print Language: Romanian Discharge ED Provider: Taqueria Vo General Adult HPI <LESLIE Lanier - Last Filed: 04/12/25 20:12> General Chief complaint: PAIN Stated complaint: CP Time Seen by Provider: 04/12/25 17:52 Mode of Arrival: Ambulatory Source of Information: Patient Limitations: No Limitations History of Present Illness HPI narrative: 40-year-old female presents to the emergency department with a 2 to 3-day history of dysphagia, food bolus/foreign body in the esophagus sensation, chest pain shortness of breath, and left ear pain, patient denies any fever chills cough congestion, denies any overt abdominal pain no nausea no vomiting no constipation no diarrhea no urinary type symptomatology, patient is a current everyday smoker (vapes), denies any alcohol or drug use, denies any other real relevant past medical history, takes no other medications at home. Does admit to some reflux symptomatology, and difficulty/pain with swallowing, with her meals the last 2 or 3 days, patient has able to tolerate p.o. solids and liquids, last meal was mozzarella sticks , 2 hours ago and describes a foreign body sensation. Initial triage vitals unremarkable Onset (ago): day(s) Related Data Previous Rx's ?Medication ?Instructions ?Recorded amoxicillin 500 mg-potassium 1 tab PO TID #15 tabs 04/04/24 clavulanate 125 mg tablet (Augmentin) pantoprazole 40 mg tablet,delayed 40 mg PO DAILY 4 weeks #28 tabs 04/12/25 release Allergies Allergy/AdvReac Type Severity Reaction Status Date / Time No Known Allergies Allergy Verified 04/09/24 14:12 PFS <LESLIE Lanier - Last Filed: 04/12/25 20:12> [facility] Disclaimer: The information contained in this section may have been updated after the patient was seen, as this information can be updated by other users. Medical History (Updated 04/12/25 @ 20:09 by LESLIE Lanier) Depression Anxiety Migraine Surgical History (Updated 04/09/24 @ 14:13 by FARIDA Murillo) History of rhinoplasty History of appendectomy H/O tubal ligation Social History Smoking Status: Never smoker alcohol intake: never substance use type: denies use current occupational status: employed Travel in the last 8 weeks?: None Have you lived/traveled outside US in past 30 days?: No Contact w/someone who lives/traveled outside US past 30 days?: No Exposure to someone with infectious disease in past 14 days?: No Do you have a fever (greater than 100.4 F or 38 C)?: No Have you tested positive for COVID-19?: No Exposed to someone with COVID-19 in past 14 days?: No Do you have a sore throat?: No Do you have a cough?: No Do you have any weakness?: No Do you have any diarrhea?: No Are you experiencing any unusual bleeding?: No Do you have any muscle aches/pain?: No Do you have any abdominal pain?: No Are you experiencing loss of taste or smell?: No <LESLIE Lanier - Last Filed: 04/12/25 20:12> ROS Obtained: Yes All systems reviewed & no additional complaints except as documented Physical Exam <LESLIE Lanier - Last Filed: 04/12/25 20:12> General General appearance: alert and in no apparent distress Head Head exam: atraumatic and normocephalic Eye Eye exam: Present PERRL and EOMI ENT ENT exam: Present mucous membranes moist, normal external ear exam and other (I performed otoscopic exam on the left, cerumen that is not impacted, no erythema, no tympanic membrane perforation, no tympanic membrane bulging, external auditory canal is clear.) Neck Neck exam: Present normal inspection Chest Chest inspection: Present normal inspection and symmetric chest wall rise Respiratory Respiratory exam: Present normal lung sounds bilaterally; Absent respiratory distress Cardiovascular Cardiovascular exam: Present regular rate and normal rhythm Abdominal Exam Abdominal exam: Present soft; Absent tenderness, guarding, rebound or rigidity Extremities Exam Extremities exam: Present normal inspection Neurological Exam Neurological exam: Present alert and oriented X3 Psychiatric Psychiatric exam: Present normal affect Skin Skin exam: Present warm and dry Medical Decision Making <LESLIE Lanier - Last Filed: 04/12/25 20:12> Medical Records Medical records reviewed: Yes I reviewed the patient's medical records. Screening: Per USPSTF and CDC recommendations, given the prevalence of disease in our region, it is our hospital?s policy to screen for HIV and viral Hepatitis for all patients aged 18 and over and those with ongoing risk factors. Enoch Inquiry Pt receiving controlled substance: No Enoch was queried for this patient: No Vital Signs: 04/12/25 17:49 04/12/25 17:56 04/12/25 18:00 Temperature 97.9 F Temperature Source Oral Pulse Rate 75 81 Pulse Rate [Left Radial] 72 Respiratory Rate 20 Blood Pressure 157/100 H 141/93 H Blood Pressure [Right Arm] 157/100 H Blood Pressure Mean [Right Arm] 119 Blood Pressure Position 02 Sat by Pulse Oximetry 99 98 97 Oxygen Delivery Method Room Air Room Air Room Air 04/12/25 18:43 04/12/25 20:15 04/12/25 20:21 Temperature 97.9 F 98.1 F Temperature Source Oral Oral Pulse Rate 72 72 74 Pulse Rate [Left Radial] Respiratory Rate 16 18 Blood Pressure 141/101 H 138/97 H 138/97 H Blood Pressure [Right Arm] Blood Pressure Mean [Right Arm] Blood Pressure Position Sitting Sitting 02 Sat by Pulse Oximetry 95 Oxygen Delivery Method Room Air Room Air Room Air Lab Data Lab results reviewed: Yes I reviewed the patient's lab results. Lab Results 04/12/25 19:11: WBC 10.7, RBC 4.96, Hgb 14.8, Hct 43.4, MCV 87.5, MCH 29.8, MCHC 34.1, RDW 12.7, Plt Count 395, MPV 9.0, Neut % (Auto) 63.2, Lymph % (Auto) 26.4, [place] % (Auto) 6.6, Eos % (Auto) 2.9, Baso % (Auto) 0.7, Neut # (Auto) 6.8, Lymph # (Auto) 2.8, [place] # (Auto) 0.7, Eos # (Auto) 0.3, Baso # (Auto) 0.1, Sodium 140, Potassium 3.7, Chloride 104, Carbon Dioxide 25, Anion Gap 14.7, BUN 11, Creatinine 0.90, Estimated Creat Clear 107, Estimated GFR 69, Est GFR ( Amer) 84, Glucose 98, Calcium 10.4 H, Total Bilirubin 0.6, AST 29, ALT 24, Alkaline Phosphatase 81, Troponin I < 0.01, NT-Pro-B Natriuret Pep 172 H, Total Protein 7.9, Albumin 4.5, Globulin 3.4 H, Albumin/Globulin Ratio 1.3, Serum HCG, Qual Negative 04/12/25 19:11 04/12/25 19:11 Orders (Tests/Meds): ED MEDICATIONS Discontinued Medications Generic Name Dose Route Start Last Admin Trade Name Freq PRN Reason Stop Dose Admin Belladonna Alkaloids 60 ml 04/12/25 18:11 04/12/25 18:18 Belladonna Alkaloids 60 Ml Ml PO 04/12/25 18:12 60 ml ONCE ONE Administration ORDERS Category Date Time Status CT chest wo con Stat Cat Scan 04/12/25 18:11 Completed Complete Blood Count Auto Diff Stat Lab 04/12/25 19:11 Completed Comprehensive Metabolic Panel Stat Lab 04/12/25 19:11 Completed HCG Qualitative, Serum Stat Lab 04/12/25 19:11 Completed NT Pro Brain Natriuretic Pep. Stat Lab 04/12/25 19:11 Completed Troponin I Stat Lab 04/12/25 19:11 Completed Medical Decision Narrative: 40-year-old female presents to the emergency department with chest pain dysphagia/odynophagia, reflux symptomatology differential diagnosis to include but not limited to, esophageal spasm, GERD, food bolus, ACS, anxiety reaction, panic attack, gastritis, acute bronchitis, pneumonia among others I discussed this patient's case with the attending physician Dr. Vo Will obtain basic laboratory studies, EKG, CT chest without contrast, hCG qualitative, proBNP, troponin, will give GI cocktail. CBC unremarkable hCG qualitative negative CMP is notable for mild hypercalcemia 10.4 I reviewed the patient's CT chest without contrast along the corresponding radiologic report, no acute findings. Patient's troponin is less than 0.01, proBNP is mildly elevated at 172 otherwise unremarkable CMP. Patient's initial troponin is negative, EKG shows nonischemic changes, I believe more of a reflux/esophagitis picture is at play with the dysphagia and/difficulty swallowing. Patient has had symptoms for the last 2 or 3 days, thus making cardiac pathology less likely. Patient has remained hemodynamically stable throughout her time in the emergency department, no tachypnea no tachycardia. I discussed the results with the patient and family the bedside, patient and family are in agreement with current treatment plan/discharge plan, patient is able to tolerate GI cocktail, no true dysphagia, no food bolus noted on CT scan, patient most likely has some degree of reflux esophagitis versus acute URI, recommend symptomatic relief/[id number] cold and flu medications for URI type symptomatology, will prescribe pantoprazole 40 mg p.o, daily for 4 weeks, will follow-up with GI physician, patient was given strict ED return precautions. Patient and family voiced understanding. <Taqueria Vo MD - Last Filed: 04/13/25 18:50> Vital Signs: 04/12/25 17:49 04/12/25 17:56 04/12/25 18:00 Temperature 97.9 F Temperature Source Oral Pulse Rate 75 81 Pulse Rate [Left Radial] 72 Respiratory Rate 20 Blood Pressure 157/100 H 141/93 H Blood Pressure [Right Arm] 157/100 H Blood Pressure Mean [Right Arm] 119 Blood Pressure Position 02 Sat by Pulse Oximetry 99 98 97 Oxygen Delivery Method Room Air Room Air Room Air 04/12/25 18:43 04/12/25 20:15 04/12/25 20:21 Temperature 97.9 F 98.1 F Temperature Source Oral Oral Pulse Rate 72 72 74 Pulse Rate [Left Radial] Respiratory Rate 16 18 Blood Pressure 141/101 H 138/97 H 138/97 H Blood Pressure [Right Arm] Blood Pressure Mean [Right Arm] Blood Pressure Position Sitting Sitting 02 Sat by Pulse Oximetry 95 Oxygen Delivery Method Room Air Room Air Room Air Lab Data Lab Results 04/12/25 19:11: WBC 10.7, RBC 4.96, Hgb 14.8, Hct 43.4, MCV 87.5, MCH 29.8, MCHC 34.1, RDW 12.7, Plt Count 395, MPV 9.0, Neut % (Auto) 63.2, Lymph % (Auto) 26.4, [place] % (Auto) 6.6, Eos % (Auto) 2.9, Baso % (Auto) 0.7, Neut # (Auto) 6.8, Lymph # (Auto) 2.8, [place] # (Auto) 0.7, Eos # (Auto) 0.3, Baso # (Auto) 0.1, Sodium 140, Potassium 3.7, Chloride 104, Carbon Dioxide 25, Anion Gap 14.7, BUN 11, Creatinine 0.90, Estimated Creat Clear 107, Estimated GFR 69, Est GFR ( Amer) 84, Glucose 98, Calcium 10.4 H, Total Bilirubin 0.6, AST 29, ALT 24, Alkaline Phosphatase 81, Troponin I < 0.01, NT-Pro-B Natriuret Pep 172 H, Total Protein 7.9, Albumin 4.5, Globulin 3.4 H, Albumin/Globulin Ratio 1.3, Serum HCG, Qual Negative Orders (Tests/Meds): ED MEDICATIONS Discontinued Medications Generic Name Dose Route Start Last Admin Trade Name Freq PRN Reason Stop Dose Admin Belladonna Alkaloids 60 ml 04/12/25 18:11 04/12/25 18:18 Belladonna Alkaloids 60 Ml Ml PO 04/12/25 18:12 60 ml ONCE ONE Administration ORDERS Category Date Time Status CT chest wo con Stat Cat Scan 04/12/25 18:11 Completed Complete Blood Count Auto Diff Stat Lab 04/12/25 19:11 Completed Comprehensive Metabolic Panel Stat Lab 04/12/25 19:11 Completed HCG Qualitative, Serum Stat Lab 04/12/25 19:11 Completed NT Pro Brain Natriuretic Pep. Stat Lab 04/12/25 19:11 Completed Troponin I Stat Lab 04/12/25 19:11 Completed ECG Data Tracing #1: I reviewed this ECG and interpreted as documented below: (Sinus rhythm 97 bpm with HI 108, QRS 81, QTc 395. No acute ischemic change and normal axis) Medical Decision Narrative: 40-year-old female presents to the emergency department with chest pain dysphagia/odynophagia, reflux symptomatology differential diagnosis to include but not limited to, esophageal spasm, GERD, food bolus, ACS, anxiety reaction, panic attack, gastritis, acute bronchitis, pneumonia among others I discussed this patient's case with the attending physician Dr. Vo Will obtain basic laboratory studies, EKG, CT chest without contrast, hCG qualitative, proBNP, troponin, will give GI cocktail. CBC unremarkable hCG qualitative negative CMP is notable for mild hypercalcemia 10.4 I reviewed the patient's CT chest without contrast along the corresponding radiologic report, no acute findings. Patient's troponin is less than 0.01, proBNP is mildly elevated at 172 otherwise unremarkable CMP. Patient's initial troponin is negative, EKG shows nonischemic changes, I believe more of a reflux/esophagitis picture is at play with the dysphagia and/difficulty swallowing. Patient has had symptoms for the last 2 or 3 days, thus making cardiac pathology less likely. Patient has remained hemodynamically stable throughout her time in the emergency department, no tachypnea no tachycardia. I discussed the results with the patient and family the bedside, patient and family are in agreement with current treatment plan/discharge plan, patient is able to tolerate GI cocktail, no true dysphagia, no food bolus noted on CT scan, patient most likely has some degree of reflux esophagitis versus acute URI, recommend symptomatic relief/[id number] cold and flu medications for URI type symptomatology, will prescribe pantoprazole 40 mg p.o, daily for 4 weeks, will follow-up with GI physician, patient was given strict ED return precautions. Patient and family voiced understanding. I was consulted by the [facility], and we discussed the complexity of the problems being addressed. I approved the treatment and management plan for this patient's care in the Emergency Department, thus performing a substantive portion of the medical decision making. Taqueria Vo MD Critical Care <LESLIE Lanier - Last Filed: 04/12/25 20:12> Critical Care Time Critical Care Time: No
--- NOTE | 2025-04-12 18:11 | CT_ITS ---
PROCEDURE INFORMATION: Exam: CT Chest Without Contrast; Diagnostic Exam date and time: 04/12/2025 6:47 PM Age: 40 years old Clinical indication: Other: Dysphagia; Additional info: Dysphagia, foreign body sensation/food bolus TECHNIQUE: Imaging protocol: Diagnostic computed tomography of the chest without contrast. Radiation optimization: All CT scans at this facility use at least one of these dose optimization techniques: automated exposure control; mA and/or kV adjustment per patient size (includes targeted exams where dose is matched to clinical indication); or iterative reconstruction. COMPARISON: CT ABDOMEN PELVIS W CON 04/04/2024 11:34 AM FINDINGS: Lungs: Unremarkable. No consolidation. No masses. Pleural spaces: Unremarkable. No pneumothorax. No pleural effusion. Heart: No coronary calcification is noted. . No cardiomegaly. No pericardial effusion. Lymph nodes: Unremarkable. No enlarged lymph nodes. Vasculature: Unremarkable. No aortic aneurysm. Bones/joints: Unremarkable. No acute fracture. Soft tissues: Unremarkable. IMPRESSION: No acute findings.
[2025-04-12] MEDS: BELLADONNA ALKALOIDS 60 ML ML PO (18:18)
[2025-04-12 18:43] VITALS: BP 141/101; PULSE 72; O2SAT 95
--- NOTE | 2025-04-12 18:46 | PC.NURSE ---
patient gone to ct
[2025-04-12 19:19] LABS: Basophils # 0.1 K/mm3 (0-0.2); Basophils % 0.7 % (0.1-2.0); Eosinophils # 0.3 Kmm3 (0.0-0.4); Eosinophils % 2.9 % (0.1-12.0); Hematocrit 43.4 % (37.0-47.0); Hemoglobin 14.8 g/dL (12.2-16.2); Immature Granulocytes # 0.02 10^3uL; Immature Granulocytes % 0.2 %; Lymphocytes # 2.8 K/mm3 (0.7-4.5); Lymphocytes % 26.4 % (10-50); Mean Corpuscular HGB Conc 34.1 g/dL (31.8-35.4); Mean Corpuscular Hemoglobin 29.8 pg (27.0-31.2); Mean Corpuscular Volume 87.5 fl (81-99); Monocytes # 0.7 K/mm3 (0.1-1.0); Monocytes % 6.6 % (1.7-9.3); Neutrophils # 6.8 K/mm3 (1.8-7.8); Neutrophils % 63.2 % (37.0-80.0); Nucleated Red Blood Cells # 0 10^3/uL; Nucleated Red Blood Cells % 0 %; Platelet Count 395 K/mm3 (142-424); Red Blood Count 4.96 M/mm3 (4.20-5.40); Red Cell Distribution Width 12.7 % (11.5-17.5); Red Cell Distribution Width-SD 40.3 fL; White Blood Count 10.7 K/mm3 (4.8-10.8)
[2025-04-12 19:28] LABS: HCG Qualitative, Serum Negative (Negative)
[2025-04-12 19:30] LABS: Alanine Aminotransferase 24 U/L (12-78); Albumin Level 4.5 g/dl (3.5-5.0); Albumin/Globulin Ratio 1.3 (1.1-1.8); Alkaline Phosphatase 81 U/L (38-126); Anion Gap 14.7 mEq/L (5-15); Aspartate Amino Transferase 29 U/L (14-36); Bilirubin,Total 0.6 mg/dl (0.2-1.3); Blood Urea Nitrogen 11 mg/dl (7-17); Calcium 10.4 mg/dl (8.4-10.2); Carbon Dioxide 25 mmol/L (22.0-30.0); Chloride 104 mmol/L (98-107); Creatinine Clearance Estimated 107 mL/min (50-200); Estimated Glomerular Filt Rate 69 ml/min (>60); GFR (African American) 84 ML/MIN (>60); Globulin 3.4 g/dL (1.3-3.2); Glucose 98 mg/dl (74-100); Potassium 3.7 mmoL/L (3.5-5.1); Sodium 140 mmol/L (136-145); Total Protein,Serum 7.9 g/dl (6.3-8.2)
[2025-04-12 19:42] LABS: NT Pro Brain Natriuretic Pep. 172 pg/mL (0-125)
[2025-04-12 19:50] LABS: Troponin I < 0.01 ng/ml (0.00-0.034)
[2025-04-12 20:15] VITALS: BP 138/97; PULSE 72; RESP 16; TEMP 36.6; O2SAT 97
[2025-04-12 20:21] VITALS: BP 138/97; PULSE 74; RESP 18; TEMP 36.7; O2SAT 100
== END 2025-04-12 20:16 | disposition home or self-care (01) ==
PROVIDERS: Physician Assistant; Emergency Provider Emergency Medicine; PCP Nurse Practitioner Family
DX: R07.9 Chest pain, unspecified (principal); R06.02 Shortness of breath; R09.A2 Foreign body sensation, throat; K21.9 Gastro-esophageal reflux disease without esophagitis
CPT/HCPCS: 71250; 80053; 83880; 84484; 84703; 85025; 93005; 99284

== ENCOUNTER 2025-05-27 10:50 | Day surgery (SDC) | payer BC, SELFPAY ==
[2025-05-26 15:01] VITALS: BMI 32.1
[2025-05-27 11:41] VITALS: BP 121/76; PULSE 78; RESP 20; TEMP 36.7; O2SAT 98
[2025-05-27 11:53] LABS: Urine Pregnancy, HCG Qual. Negative (Negative)
--- NOTE | 2025-05-27 12:28 | EXP.HP ---
History of Present Illness *Admission Date: 05/27/25 *Reason for visit:: Dysphagia and globus sensation *History of present illness: Mrs. Bacon is a 40-year-old female who is here for diagnostic EGD secondary to dysphagia and globus sensation. The examination is deemed medically necessary for [default value]. The patient has been seen, interviewed and examined prior to the procedure by both myself and the anesthesia provider. [facility] Disclaimer: The information contained in this section may have been updated after the patient was seen, as this information can be updated by other users. Medical History Depression Anxiety Migraine Surgical History History of rhinoplasty History of appendectomy H/O tubal ligation Family History (Updated 05/26/25 @ 14:59 by Nella Lobo RN) Other Family history of cancer Social History (Updated 05/26/25 @ 14:59 by Nella Lobo RN) Smoking Status: Never smoker alcohol intake: never substance use type: denies use current occupational status: employed Travel in the last 8 weeks?: None household members: family housing: house Have you lived/traveled outside US in past 30 days?: No Contact w/someone who lives/traveled outside US past 30 days?: No Exposure to someone with infectious disease in past 14 days?: No Do you have a fever (greater than 100.4 F or 38 C)?: No Have you tested positive for COVID-19?: No Exposed to someone with COVID-19 in past 14 days?: No Do you have a sore throat?: No Do you have a cough?: No Do you have any weakness?: No Are you experiencing any nausea/vomitting?: No Do you have any diarrhea?: No Are you experiencing any unusual bleeding?: No Do you have any muscle aches/pain?: No Do you have any abdominal pain?: No Are you experiencing loss of taste or smell?: No Other Medical History Have you received the Pneumonia Vaccine: No Review of Systems Review of Systems Review of systems (narrative): Negative *Cardiovascular Comments: Negative *Gastrointestinal Comments: Negative *Genitourinary Comments: Negative *Musculoskeletal Comments: Negative *Neurologic Comments: Negative Meds Home Medications and Allergies Home Medications ?Medication ?Instructions ?Recorded ?Confirmed ?Type pantoprazole 40 mg tablet,delayed 40 mg PO DAILY #30 tabs 05/19/25 05/27/25 Rx release New Prescriptions to Start Prescriptions: Allergies Allergy/AdvReac Type Severity Reaction Status Date / Time No Known Allergies Allergy Verified 05/26/25 14:59 Exam Data for Last 24 hours Vital signs and Labs for Last 24 Hours: Temp Pulse Resp BP Pulse Ox O2 Del Method 98.1 F 78 20 121/76 98 Room Air 05/27/25 11:41 05/27/25 11:41 05/27/25 11:41 05/27/25 11:41 05/27/25 11:41 05/27/25 11:41 Laboratory Results - last 24 hr 05/27/25 11:45: Urine HCG, Qual Negative I & O for Last 24 hours: Intake & Output 05/24/25 05/25/25 05/26/25 05/27/25 23:59 23:59 23:59 23:59 Weight 170 lb *Routine HEENT Exam Head: Present normocephalic Eye: Present EOMI and PERRL ENT: Present mucous membranes moist *Routine Neck Exam Neck: Present supple *Routine Respiratory Exam Respiratory: Present CTA bilaterally *Routine Cardiovascular Exam Cardiovascular: Present RRR *Routine Abdominal Exam Abdominal: Present soft and normoactive bowel sounds; Absent tenderness *Routine Rectal Exam Rectal:: deferred *Routine Genitalia Exam Genitalia:: deferred *Routine Extremities Exam Extremities: Absent cyanosis, clubbing or edema *Routine Skin Exam Skin: Present warm; Absent rash *Routine Neurological Exam Neurological: Present alert and oriented X3 Assessment and Plan *Assessment and plan (1) Globus sensation: Status: Acute Category: Medical Code(s): R09.A2 - Foreign body sensation, throat (2) Choking: Status: Acute Category: Medical Code(s): T17.308A - Unspecified foreign body in larynx causing other injury, initial encounter (3) Dysphagia: Status: Acute Category: Medical Code(s): R13.10 - Dysphagia, unspecified (4) GERD (gastroesophageal reflux disease): Status: Acute Category: Medical Code(s): K21.9 - Gastro-esophageal reflux disease without esophagitis Plan A/P: 1. Dysphagia, choking and globus sensation with history of GERD is the preprocedural diagnosis. The patient will be anesthetized/sedated using MAC sedation. The patient has been seen and examined. Cardiac and lung assessment prior to the examination is stable. Proceed with planned diagnostic EGD.
--- NOTE | 2025-05-27 12:33 | EXP.ANES.CKL ---
[facility] Disclaimer: The information contained in this section may have been updated after the patient was seen, as this information can be updated by other users. Medical History Depression Anxiety Migraine Surgical History History of rhinoplasty History of appendectomy H/O tubal ligation Family History (Updated 05/26/25 @ 14:59 by Nella Lobo RN) Other Family history of cancer Social History (Updated 05/26/25 @ 14:59 by Nella Lobo RN) Smoking Status: Never smoker alcohol intake: never substance use type: denies use current occupational status: employed Travel in the last 8 weeks?: None household members: family housing: house Have you lived/traveled outside US in past 30 days?: No Contact w/someone who lives/traveled outside US past 30 days?: No Exposure to someone with infectious disease in past 14 days?: No Do you have a fever (greater than 100.4 F or 38 C)?: No Have you tested positive for COVID-19?: No Exposed to someone with COVID-19 in past 14 days?: No Do you have a sore throat?: No Do you have a cough?: No Do you have any weakness?: No Are you experiencing any nausea/vomitting?: No Do you have any diarrhea?: No Are you experiencing any unusual bleeding?: No Do you have any muscle aches/pain?: No Do you have any abdominal pain?: No Are you experiencing loss of taste or smell?: No [facility] Anesthesia Checklist Patient Identification Patient Identification: Arm Band Structural Data Admitted From: Home Planned Operative Procedure/s: EGD Consent for Planned Operative Procedure(s) Verified: Yes Verified Documents: Surgical Consent and History and Physical NPO Status Verified Time NPO: 00:00 Additional verifications Anesthesia Reactions: No Airway Assessment Mallampati Score:: Class II C-Spine Mobility Assessed: Yes TMJ Mobility Assessed: Yes Dentition: Good Dentition Neurological Assessment Level of Consciousness: Awake, Alert and Appropriate Anesthesia Plan Anesthesia Risk discussed: Yes Anesthesia Plan: Verified ASA Class: II Anesthesia Type: MAC
--- NOTE | 2025-05-27 12:38 | P.PCN_ITS ---
[facility] Procedure Note Date: 05/27/25 Time: 13:24 Procedure Note:: Upper Endoscopy Procedure Report: Esophagogastroduodenoscopy with cold biopsies and TTS balloon dilation Endoscopost: Munir Cowan II, MD Referring Physician: BOBBY Ricketts Date of Procedure: May 27, 2025 Equipment: Olympus GIF-1100 standard upper endoscope Sedation: MAC sedation Indications: Mrs. Bacon is a 40-year-old female who is here for diagnostic upper endoscopy. She does have dysphagia and choking. In March 2025 the patient developed this and went to the ED. At that time, she also had ear pain. She had a chest CT that was unremarkable. She was placed on Protonix. She started on a liquid diet for 3 weeks and the Protonix began to help. She began to have resolution of the globus sensation and dysphagia symptoms. She did see ENT Dr. Contreras who did a laryngoscope and found evidence of GERD. She did have a barium swallow that showed a small hiatal hernia. She reports no heartburn or reflux. She has been on a gut health supplement for 3 years and prior to this was having constipation and bloating. Her father was diagnosed with throat cancer in his 40s. She has never had an upper endoscopy. Presently, she only feels some tightness in her throat in the evenings. She does take the Protonix in the mornings. The patient reports no dyspepsia, nausea or early satiety. Procedure: Prior to the procedure, a history and physical exam was performed, and patient's medications and allergies were reviewed. The risks, benefits and alternatives of the sedation and procedure were discussed with the patient. All questions were answered and informed consent was obtained. The patient was brought to the procedure room. Patient identification and proposed procedure were verified by the physician and the nurse. The patient was placed in a left lateral decubitus position and the scope was passed under direct vision. Throughout the procedure, the patient's blood pressure, pulse, and oxygen saturations were monitored continuously. The upper GI endoscopy was accomplished without difficulty. The patient tolerated the procedure well. Findings: The scope was passed directly into the upper esophagus and advanced to the third and fourth portion of the duodenum. A cold biopsy was taken from the second portion of duodenum for the disaccharidase assay. The post bulbar duodenum, ampulla and duodenal bulb were normal with normal mucosa and conniventes. The scope was withdrawn through a normal duodenal bulb and pylorus into the stomach. There was some mild linear reactive gastropathy of the antrum. The body and fundus of the stomach were normal. Upon retroflexion there was a very small sliding 1 to 2 cm hiatal hernia. Cold biopsies were taken from the antrum. The scope was then withdrawn into the esophagus. There was no evidence of reflux esophagitis or Zamorano's. There was no Schatzki's ring. There was no corrugation, furrowing, webs or strictures. There was no proximal esophageal inlet patch. There were tertiary contractions and evidence of moderate esophageal dysmotility. The entire esophagus was dilated to 60 Arabic/20 mm with a TTS hydrostatic balloon. There was resistance at the cricopharyngeus/cricopharyngeal spasm. The remainder of the esophageal mucosa was normal. Impression: 1. Cricopharyngeal spasm status post dilation to 20 mm 2. Nonerosive GERD with moderate esophageal dysmotility and very small sliding 1 to 2 cm hiatal hernia 3. Mild linear reactive gastropathy of antrum Plan: I will follow-up the biopsies and disaccharidase assay. The patient's choking/dysphagia and globus sensation are related to the cricopharyngeal spasm. We will discuss treatment options. She is markedly improved with Protonix/pantoprazole.
[2025-05-27 13:27] VITALS: BP 128/70; PULSE 85; RESP 16; TEMP 36.3; O2SAT 98
[2025-05-27 13:37] VITALS: BP 125/76; PULSE 67; RESP 18; O2SAT 97
[2025-05-27 13:47] VITALS: BP 126/74; PULSE 61; RESP 16; O2SAT 96
[2025-05-27 13:57] VITALS: BP 128/76; PULSE 60; RESP 16; O2SAT 96
[2025-06-01 15:52] LABS: Interpretation Notes (.); Lactase 0.61 (>/= 14.0); Maltase 29.05 (>/= 110.0); Palatinase 1.51 (>/= 8.5); Reference Notes (.); Sucrase 4.84 (>/= 25.0)
== END 2025-05-27 14:06 | disposition home or self-care (01) ==
PROVIDERS: PCP Nurse Practitioner Family; Visit Provider Internal Medicine Gastroenterology
PROC: 0DJ08ZZ Inspection of Upper Intestinal Tract, Via Natural or Artificial Opening Endoscopic (ICD-10-PCS; CPT 43239; principal; 2025-05-27 12:30)
DX: K21.9 Gastro-esophageal reflux disease without esophagitis (principal); K31.9 Disease of stomach and duodenum, unspecified
CPT/HCPCS: 43239; 43249; 81025; 82657; C1726; J2003; J2704

== ENCOUNTER 2025-07-21 15:26 | Outpatient (CLI) | payer BC, SELFPAY ==
--- OUTSIDE RECORDS SUMMARY | 2025-07-21 15:27 | XMS_ITS | Clinical Summary ---
Author Organization [employer] [facility] C are -[facility] Address [address] [place] [address] Phone Care Team Providers Care Financial Engineer Name Role Phone Unavailable Unavailable Conditions or Problems Problem Name Problem Code Onset Date Status Entry Date Provider Comment Standard Description Annotate HERPES GENITALIS 70557924 (SNOMED CT) Active Deborah Soares MD Genital herpes simplex Medications Medication Instructions Start Date Stop Date Generic Name NDC Provider ACYCLOVIR 400 MG TABS TAKE ONE TABLET THREE TIMES DAILY. 1 ACYCLOVIR [id number] Deborah Soares MD ACYCLOVIR 400 MG TABS take 1 tab oral three times a day for 5 days 2 ACYCLOVIR [id number] Deborah Soares MD Medications Administered No information available. Allergies, Adverse Reactions, Alerts Observed no known allergies at Results No information available. Plan of Care No information available. Procedures No information available. Vital Signs Date Name Value Unit Description BMI (Body Mass Index) 25.88 kg/m2 Bod y Mass Index (Ratio) Body Temperature 98.1 [degF] temperat ure E&M Body Temperature 36.7 Jennifer temperat ure in centigrade E&M BP Diastolic 83 mm[Hg] blood pressu re, diastolic BP Systolic 120 mm[Hg] blood pressur e, systolic Heart Rate 74 /min pulse rate Height 157.48 cm height in cent imeters E&M Height 62 [in_us] height E&M Weight Measured 141 [lb_av] weight E& M Weight Measured 141 [lb_av] weight E& M Weight Measured 64.09 kg weight in kilograms E&M Immunizations No information available. Advance Directives No information available.
--- OUTSIDE RECORDS SUMMARY | 2025-07-21 15:28 | XMS_ITS | Encounter Summary ---
Author Organization [place] [address] Care Team Providers Care Steam Tender Name Role Phone Keri Gordon APRN Primary Care Provider [phone] Reason for Visit * Reason Onset Date Comments Medication Refill 07/24/2017 Encounter Details Date Type Department Care Team (Late st Contact Info) Description 07/24/2017 Refill SEP Patricia [address] 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
--- OUTSIDE RECORDS SUMMARY | 2025-07-21 15:28 | XMS_ITS | Data Portability ---
Author Organization [facility] Address [address] [place] [address] Assessment No assessment recorded. Plan of Treatment Reminders Order Date Submit Date Provider Last Modified By Organization Details Last Modified Time Details Appointments None record ed. Lab None record ed. Referral None record ed. Procedures None record ed. Surgeries None record ed. Imaging None record ed. Medication Orders None record ed. Patient TargetsNo targets recorded. Patient Instructions Encounter Date Encounter Id Patient Instructions Last Modified By Organization Details Last Modified Time 04/15/2025 [id number] 1. Laryngoscopy flex performed in office today. Full risks, complications, and benefits of non-operative intervention have been thoroughly discussed. Understanding was expressed, informed consent given, and we will proceed with the discussed operative treatment plan. There were no questions for me at the end of the office visit. 2. Left unilateral cerumenectomy performed in office today. Full risks, complications, and benefits of non-operative intervention have been thoroughly discussed. Understanding was expressed, informed consent given, and we will proceed with the discussed treatment plan. There were no questions for me at the end of the office visit. 3. Recommend GI consult to consider EGD 4. Order Barium swallow esophagram 5. Continue Protonix for reflux 6. F/u with barium swallow results [email or web address] Not available 04/15/2025 08:50:27 She has acute on set dysphagia without associated throat pain or discomfort or constitutional symptoms. She admits that she has some GERD symptoms at times. She is scheduled to see gastroenterology next month. She has started Protonix. They did a CT of her neck in the emergency department at [facility] that is reported to be normal. She has no hoarseness. She does complain of left ear pain. She had a cerumen impaction of her left ear that was cleaned but her underlying tympanic membrane is otherwise normal. Her head neck exam including fiberoptic exam of nasopharynx hypopharynx and larynx is normal except for evidence of GERD. She will continue prescribed treatment and I am arranging for barium esophagram and she should also see gastroenterology for EGD [email or web address] Not available 04/15/2025 08:52:55 Reason for Referral None Reported. Results Created Date Observation Date Name Description Value Unit Range Abnormal Flag Note LastModifiedBy Organization Detail LastModifiedTime 04/28/2004/28/2025 RF, esoph jennifer, w/ contr ast PO No observ ation record ed. [email or web address] [facility] [address] [place], [address], 05/04/2025 14:49:17 Result Notes None recorded. Procedures Surgical History Date Name Laterality Status Provider Name and Address Organization Details Recorded Time 04/15/20 25 [facility] 08:42:10 04/15/20 25 [facility]oscopy [facility]/15/[facility]25 08:46:26 10/15/19 24 Rhinoplasty completed [facility] 04/15/2025 08:48:53 Imaging Results None recorded. Procedure Notes None recorded. Medical Equipment None Reported. Allergies No known drug allergies Medications Name Sig Start Date Stop Date Status Note LastModified by Organization Details LastModified Time lisinopril 20 mg tablet Take 1 tablet every day by oral route. 025 active Not Available Not Available Not Avai lable Vitals Date Recorded Body height Body mass index (BMI) Body weight Body temperature Heart rate Systolic And Diastolic Provider Name and Address Organization Details Last Updated DateTime 5 154.94 cm 14 kg/m2 32122.5 4 g 97.9 [degF] 80 /min 144/94 mm[Hg] [facility] 08:34:50 Social History None recorded. Functional Status None recorded. Mental Status None recorded. Family History Relationship Description Onset Age of this Age Resolved Age Notes LastModified by Organization Details LastModified Time Father Malignant neoplasm of oropharynx [email or web address] Not available 08:47:31 Medical History No medical history recorded. Gynecological HistoryNo gynecological history recorded. Obstetrics History GPAL:G 0 P 0 0 0 0 Past Encounters Encounter ID Performer Location Encounter Start Date Encounter Closed Date Diagnosis/Indication Diagnosis SNOMED-CT Code Diagnosis ICD10 Code Diagnosis IMO Codes Diagnosis Note [id number] MD [facility] [address] [place] [address] 04/15/2025 08:11:34 04/15/2025 08:56:38 Oropharyngeal dysphagia 44612937 R13.12 8208 04/10/25- sudden onset of Unexplaine d weight loss 979205153 R63.4 569389 Impacted c erumen in left ear 7992170831 601652 H61.22 6916112 Otalgia of left ear 1010 756986 H92.02 9374127 -referred otalgia Laryngopha ryngeal reflux 177091585 K21.9 3399028 Health Concerns Section Related Observation LastModified by Organization Detai ls LastModified Time None Recorded Concern Status LastModified by Organization Details LastModified Time None Recorded Advance Directives Directive None Recorded Payers Insurance Date Sequence Insurance Name Policy Number Policy [place] Covered Member ID [place] Member ID Guarantor Name 04/24/2025 1 [place] [id number] Dottie Bacon [id number] Dottie Bacon Notes Date Note Type Note Provider Name and Address Organization Details Recorded Time 04/15/2025 text/html Dottie comes in today for an evaluation of dysphagia. Since Sunday she had not been able to eat. She was given a GI cocktail at the ER. She has dropped 11 pounds. She had a CT performed at [facility] which was reportedly normal and did not represent a blockage. She is able to swallow liquids. She denies pain. She is now having shooting otalgia as well. She denies illness, congestion, or productive cough. She has began taking Protonix for her reflux. BISI MCKEON MD [facility] [place], [address], [facility] 04/15/2025 08:53:08 OBGyn Episode No OBEpisode recorded.
--- OUTSIDE RECORDS SUMMARY | 2025-07-21 15:28 | XMS_ITS | Clinical Summary ---
Author Organization [facility] Address [address] 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 Author Maintain a healthy diet, exercise regularly and maintain an ideal body weight General No Maedleine Hernández CCMA Insurance ANTHEM PPO [employer] PPO Advance Directives For more information, please contact: [phone] * Full Code (Latest Code Status on File) Date Activated Date Inactivated Comments 12/25/2017 10:01 PM 12/26/2017 5:20 PM
--- NOTE | 2025-07-21 15:29 | MM_ITS ---
PROCEDURE INFORMATION: Exam: Bilateral Screening 3D Mammography Exam date and time: 07/21/2025 3:30 PM Age: 40 years old Clinical indication: Screening mammogram TECHNIQUE: Imaging protocol: Bilateral Screening tomosynthesis and 2D mammography including computer-aided detection (CAD) when performed. COMPARISON: No relevant prior studies available. FINDINGS: MAMMOGRAPHY: Breast composition: The breast tissue is extremely dense, which lowers the sensitivity of mammography. Mass: 0.7 cm mass within the upper-outer posterior right breast, approximately 11 cm from the nipple, should be further assessed with spot views in CC/MLO projection. Ultrasound should also be scheduled. Architectural distortion: No new or suspicious architectural distortion. Calcifications: No new or suspicious calcifications are present Asymmetric density: No new or suspicious asymmetric density is present Skin thickening: None. Axillary adenopathy: None. IMPRESSION: 0.7 cm mass within the upper-outer posterior right breast, approximately 11 cm from the nipple, should be further assessed with spot views in CC/MLO projection. Ultrasound should also be scheduled. ASSESSMENT: BI-RADS Category 0: Incomplete - Need Additional Imaging Evaluation
== END 2025-07-21 23:59 | disposition home or self-care (01) ==
LOC: RAD 15:27
PROVIDERS: PCP Nurse Practitioner Family; Visit Provider Nurse Practitioner Women's Health
DX: Z12.31 Encounter for screening mammogram for malignant neoplasm of breast (principal); N63.11 Unspecified lump in the right breast, upper outer quadrant; R92.343 Mammographic extreme density, bilateral breasts
CPT/HCPCS: 77063; 77067

== ENCOUNTER 2025-08-25 12:38 | Outpatient (CLI) | payer BC, SELFPAY ==
--- OUTSIDE RECORDS SUMMARY | 2025-08-25 12:41 | XMS_ITS | Clinical Summary ---
Author Organization [employer] [facility] are -[facility] Address [address] [place] [address] Phone Care Team Providers Care Communications Assistant Name Role Phone Unavailable Unavailable Conditions or Problems Problem Name Problem Code Onset Date Status Entry Date Provider Comment Standard Description Annotate HERPES GENITALIS 59357249 (SNOMED CT) Active Deborah Soares MD Genital herpes simplex Medications Medication Instructions Start Date Stop Date Generic Name NDC Provider ACYCLOVIR 400 MG TABS TAKE ONE TABLET THREE TIMES DAILY. 1 ACYCLOVIR [id number] Deborah Soares MD ACYCLOVIR 400 MG TABS take 1 tab oral three times a day for 5 days 2 ACYCLOVIR [id number] Deborah Soares MD Medications Administered No information [...]
--- OUTSIDE RECORDS SUMMARY | 2025-08-25 12:42 | XMS_ITS | Clinical Summary ---
Author Organization [facility] Address [address] 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
--- OUTSIDE RECORDS SUMMARY | 2025-08-25 12:42 | XMS_ITS | Encounter Summary ---
Author Organization [place] [place] [address] Care Team Providers Care Program Services Planner Name Role Phone Keri Gordon APRN Primary Care Provider [phone] Reason for Visit * Reason Onset Date Comments Medication Refill 07/24/2017 Encounter Details Date Type Department Care Team (Late st Contact Info) Description 07/24/2017 Refill SEP Patricia [address] 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
--- NOTE | 2025-08-25 12:45 | US_ITS ---
PROCEDURE INFORMATION: Exam: US Right Breast, Complete MG Right Diagnostic Breast Tomosynthesis Exam date and time: 08/25/2025 1:11 PM Age: 40 years old Clinical indication: Callback for a finding in the right breast on screening TECHNIQUE: Imaging protocol: Complete ultrasound of all four quadrants of the right breast and the retroareolar regions, including ultrasound of the axilla when performed. Right Diagnostic tomosynthesis and 2D mammography including computer-aided detection (CAD) when performed. Unilateral or bilateral exam. COMPARISON: MG MM DIG MAMM DX UNILAT RT CAD 08/25/2025 12:54 PM FINDINGS: MAMMOGRAPHY: Breast composition: The breasts are extremely dense, which lowers the sensitivity of mammography. Breast mammogram findings: Spot compression views demonstrate a persistent reniform mass in the right upper outer quadrant at a posterior depth. No distortion or calcifications. ULTRASOUND: Breast ultrasound findings: Ultrasound of the right breast in the upper-outer quadrant at the posterior depth demonstrates benign-appearing lymph nodes. There is no suspicious mass, shadowing, or distortion. IMPRESSION: Benign lymph node in the right upper-outer quadrant, posterior depth. There is no suspicious finding by mammogram or ultrasound.. ASSESSMENT: BI-RADS Category 2: Benign.
== END 2025-08-25 23:59 | disposition home or self-care (01) ==
LOC: RAD 12:39
PROVIDERS: PCP Nurse Practitioner Family; Visit Provider Nurse Practitioner Women's Health
DX: R59.0 Localized enlarged lymph nodes (principal); R92.331 Mammographic heterogeneous density, right breast; R92.8 Other abnormal and inconclusive findings on diagnostic imaging of breast
CPT/HCPCS: 76641; 77061; 77065; G0279